=== PATIENT | female | born 1945 | race Caucasian/White ===

== ENCOUNTER 2017-02-21 14:11 | Inpatient (IN) | payer MEDICARE, OTHER ==
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
[2017-02-21 15:19] LABS: Basophils % (A) 1 %; CH 32.3; CHCM 32.5; Eosinophils # (A) 0.2 k/uL (0-0.7); Eosinophils % (A) 3 %; HCT 35.3 % (34.0-46.0); HDW 2.81; HGB 11.2 gm/dL (11.4-16.0); Luc % (Auto) 2; Lymphocytes # (A) 1.3 k/uL (1.0-4.8); Lymphocytes % (A) 22 %; MCH 31.6 pg (25.0-35.0); MCHC 31.6 g/dL (31.0-37.0); MCV 99.9 fL (80.0-100.0); Monocytes # (A) 0.4 k/uL (0-1.0); Monocytes % (A) 7 %; Neutrophils # (A) 4.2 k/uL (1.3-7.7); Neutrophils % (A) 67 %; RBC 3.54 m/uL (3.80-5.40); WBC 6.2 k/uL (3.8-10.6); WBC (Perox) 6.41
[2017-02-21 15:24] LABS: Acetaminophen <10.0 ug/mL; Alcohol <10 mg/dL; Anion Gap 8 mmol/L; Blood Urea Nitrogen 15 mg/dL (7-17); Calcium 9.8 mg/dL (8.4-10.2); Carbon Dioxide 27 mmol/L (22-30); Chloride 106 mmol/L (98-107); Glucose 102 mg/dL (74-99); Magnesium 1.9 mg/dL (1.6-2.3); Non-African American GFR(MDRD) >60 (>60 ml/min/1.73 sqM); Phosphorus 4.3 mg/dL (2.5-4.5); Potassium 3.9 mmol/L (3.5-5.1); Salicylate <1.0 mg/dL; Sodium 141 mmol/L (137-145)
[2017-02-21 16:21] LABS: Appearance,Urine Cloudy (Clear); Bacteria,Urine Rare /hpf; Bilirubin,Urine Negative (Negative); Glucose,Urine (UA) Negative (Negative); Ketones,Urine Negative (Negative); Leukocyte Esterase,Urine Large (Negative); Mucus,Urine Rare /hpf; Nitrite,Urine Negative (Negative); PH, Urine 6.5 (5.0-8.0); Particle Count 8193; Protein,Urine Negative (Negative); RBC,Urine <1 /hpf (0-5); Specific Gravity,Urine 1.006 (1.001-1.035); UA Billing (MACRO vs. MICRO) MICRO; Urobilinogen,Urine <2.0 mg/dL (<2.0); WBC,Urine 131 /hpf (0-5)
[2017-02-21] MEDS ORDERED: LORazepam 2 MG/ML INJ IV STA ×2 (16:38→17:41)
[2017-02-21] MEDS ORDERED: cefTRIAXone IN SWFI 1,000 MG/10 ML SYRINGE IVP ONE (17:00)
[2017-02-21] MEDS ORDERED: LORazepam 2 MG/ML INJ IV PRN (17:41)
[2017-02-21] MEDS ORDERED: SODIUM CHLORIDE 0.9% 1,000 ML IV ONE (17:42)
[2017-02-21] MEDS ORDERED: HALOPERIDOL LACTATE 5 MG/ML 1 ML VIAL IM ONE (18:04)
[2017-02-21] MEDS: HALOPERIDOL LACTATE 5 MG/ML 1 ML VIAL IM PRN ×2 (19:55→23:22)
[2017-02-21] MEDS ORDERED: QUEtiapine 25 MG TAB PO SCH (21:00)
[2017-02-22] MEDS: HALOPERIDOL LACTATE 5 MG/ML 1 ML VIAL IM PRN (06:07)
[2017-02-22] MEDS ORDERED: LORazepam 2 MG/ML INJ IM PRN (06:39)
[2017-02-22 07:37] LABS: Anion Gap 11 mmol/L; Blood Urea Nitrogen 11 mg/dL (7-17); Calcium 9.6 mg/dL (8.4-10.2); Carbon Dioxide 20 mmol/L (22-30); Chloride 110 mmol/L (98-107); Glucose 99 mg/dL (74-99); Non-African American GFR(MDRD) >60 (>60 ml/min/1.73 sqM); Potassium 4.5 mmol/L (3.5-5.1); Sodium 141 mmol/L (137-145)
[2017-02-22 07:47] LABS: Basophils # (A) 0.1 k/uL (0-0.2); Basophils % (A) 2 %; CH 31.5; CHCM 29.8; Eosinophils # (A) 0.1 k/uL (0-0.7); Eosinophils % (A) 4 %; HCT 36.8 % (34.0-46.0); HDW 2.74; HGB 11.4 gm/dL (11.4-16.0); Hypochromasia Marked; Luc # (Auto) 0.09; Luc % (Auto) 2; Lymphocytes # (A) 0.7 k/uL (1.0-4.8); Lymphocytes % (A) 18 %; MCH 32.7 pg (25.0-35.0); MCHC 30.9 g/dL (31.0-37.0); Macrocytosis Slight; Mean Platelet Volume 7.7; Monocytes # (A) 0.4 k/uL (0-1.0); Monocytes % (A) 9 %; Neutrophils # (A) 2.6 k/uL (1.3-7.7); Neutrophils % (A) 66 %; RBC 3.47 m/uL (3.80-5.40); WBC (Perox) 3.91
[2017-02-22] MEDS ORDERED: CEFUROXIME 250 MG TAB PO SCH (09:00)
[2017-02-22] MEDS ORDERED: cefTRIAXone IN SWFI 1,000 MG/10 ML SYRINGE IVP SCH (09:00)
[2017-02-22] MEDS: ENOXAPARIN 40 MG/0.4 ML SYRINGE SQ SCH (09:27)
[2017-02-22] MEDS: ACETAMINOPHEN TAB 325 MG TAB PO PRN ×4 (09:41→23:39)
--- NOTE | 2017-02-22 14:59 | XR ---
EXAMINATION TYPE: XR Hip LT and AP Pelvis DATE OF EXAM: 02/22/2017 COMPARISON: NONE HISTORY: Pain TECHNIQUE: A single AP view of the pelvis is obtained. Two views of the left hip are obtained. FINDINGS: Patient is status post open reduction internal fixation for bilateral hip fractures, left h ip fracture is more recent with intertrochanteric appearance. The left hip shows displacement of the lesser trochanter with comminuted fracture fragments, heterotopic new bone formation present bilatera lly. Alignment is maintained. Bone mineralization is reduced. Probable vascular calcifications are pr esent within the pelvis. Basilar calcifications also noted within the soft tissues of the left lower extremity. [place] are present within the soft tissues of the left thigh. IMPRESSION: Postop changes as described.
--- NOTE | 2017-02-22 15:07 | XR ---
Left ankle HISTORY: Pain 3 views of the left ankle Bone mineralization is reduced. Patient shows post open reduction internal fixation changes were medi al malleolar, distal fibular fracture now healed. Alignment is maintained. Degenerative changes are p resent within the intertarsal joints. No acute fracture or dislocation is evident. There is soft tiss ue swelling present. Difficult to exclude some impingement of the medial malleolar screws at the ankl e joint. IMPRESSION: Osteopenia, postop changes and additional findings above. Correlate to exclude impingemen t.
--- NOTE | 2017-02-22 15:55 | XR ---
Left hand HISTORY: Pain, fall, altered mental status 2 views of the left hand There is a distal metaphyseal left radial fracture which may be chronic with remodeling, distal ulnar fracture is also likely present with pseudoarthrosis, nonunion. There is periosteal new bone formati on is suspected at the distal fifth metacarpal. Bone mineralization is reduced. IMPRESSION: Findings suggest fractures of indeterminate age. Correlate.
[2017-02-22] MEDS ORDERED: OLANZapine ODT 5 MG TAB PO PRN (16:37)
[2017-02-22] MEDS ORDERED: NON-FORMULARY DRUG (Acetaminophen [Tylenol 8 Hour] 650 MG) PO PRN (17:41)
[2017-02-22] MEDS: OLANZapine 2.5 MG TAB PO SCH ×2 (17:59→22:00)
--- NOTE | 2017-02-22 18:16 | XR ---
EXAMINATION TYPE: XR chest 1V portable DATE OF EXAM: 02/22/2017 COMPARISON: NONE HISTORY: Heart failure. Chest pain TECHNIQUE: Single frontal view of the chest is obtained. FINDINGS: There is no heart failure nor confluent pneumonic infiltrate. Costophrenic angles are nicci r. Thoracic aorta is atheromatous. There is no sign of pleural effusion. IMPRESSION: No active cardiopulmonary disease.
--- NOTE | 2017-02-22 18:36 | CT ---
EXAMINATION TYPE: CT brain wo con DATE OF EXAM: 02/22/2017 COMPARISON: NONE HISTORY: Patient poor historian. Patient altered mental status. Fall. CT DLP: 1109 mGycm Automated exposure control for dose reduction was used. FINDINGS: There is cerebral cortical atrophy. There is enlargement of the ventricles. There is no mass effect n or midline shift. There is no sign of intracranial hemorrhage. The calvarium is intact. 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 NO ACUTE INTRACRANIAL ABNORMALITY.
[2017-02-22] MEDS: cefTRIAXone IN SWFI 1,000 MG/10 ML SYRINGE IVP SCH (18:56)
--- NOTE | 2017-02-22 20:48 | HP ---
HISTORY AND PHYSICAL CHIEF COMPLAINT: Change in mental status. HISTORY OF PRESENT ILLNESS: This 71-year-old woman with a past medical history of multiple medical problems, including hypertension, hyperlipidemia, history of DJD, history of heavy alcohol abuse, previously apparent dementia being followed by primary physician in the outpatient setting recently had a fall and had surgery on the left hip and elsewhere. The patient subsequently admitted to [facility] in [place]. In [facility] in [place], the patient was found to be confused, patient had abnormal behavior and the patient taken to [facility] and admitted for evaluation and treatment. UTI, sepsis suspected as well as alcohol-related issues were suspected, also. The patient was complaining of multiple falls as well. The patient also had deformity of the left hand. Multiple x-rays were done and ankle x-ray showed osteopenia, postoperative changes. Otherwise, hip and pelvis x-ray showed postoperative changes and hand x-ray was also done which showed fracture of indeterminate age of the distal ulna. There is no history of any fever, rigors or chills. The patient is confused and I am unable to obtain a coherent history. Most of the history is taken in my discussion with staff as well as review of the chart. PAST MEDICAL HISTORY: Recent fracture surgery, hypertension, COPD, hypothyroidism, vitamin D deficiency, EtOH. MEDICATIONS: Prior to admission include: 1. Librium 25 mg p.o. b.i.d. 2. Norvasc 10 mg p.o. daily. 3. Vitamin B1 100 mg b.i.d. 4. Multivitamins 1 p.o. daily. 5. Synthroid 200 mcg p.o. daily. 6. Ativan 2 mg q.4h p.r.n. 7. Folic acid 1 mg. 8. Iron sulfate 325 mg b.i.d. 9. Lovenox 40 mg subcu daily. 10.Vasotec 5 mg p.o. daily. 11.Colace 100 mg p.o. b.i.d. 12.Vitamin D3 2000 a day. 13.Calcium carbonate 500 mg p.o. b.i.d. 14.Atelectasis 100 mg p.o. daily. 15.Tylenol every 6 hours p.r.n. ALLERGIES: None. FAMILY HISTORY, SOCIAL HISTORY, REVIEW OF SYSTEMS: Could not be taken, as the patient is stuporous. Otherwise as mentioned earlier. PHYSICAL EXAM: Patient is stuporous. Pulse is 68, blood pressure 94/80, respirations 18, temperature 98.8, pulse ox 98% on room air. HEENT: Conjunctivae normal. Oral mucosa moist. NECK: No jugular venous distention. No carotid bruits. No lymph node enlargement. CARDIOVASCULAR: S1, S2 muffled. No S3, S4. RESPIRATORY: Breath sounds diminished in the bases. A few scattered rhonchi. No crackles. ABDOMEN: Soft, nontender. LEGS: No edema. NERVOUS SYSTEM: Diffusely weak. SKIN: No ulcer, rash, bleeding. LYMPHATIC: No lymphadenopathy in neck, axillae or groins. JOINTS: Multiple deformities present. LABS: WBC 4, hemoglobin is 11.4. UA noted. ASSESSMENT: 1. Acute urinary tract infection with possible sepsis. 2. Left hand fracture. 3. Fall and multiple fractures with left hip fracture and surgery recently. 4. History possible dementia. 5. History of ethanol. 6. History of chronic obstructive pulmonary disease. 7. Hypertension. 8. History of vitamin D deficiency. 9. History of degenerative joint disease. RECOMMENDATION AND DISCUSSION: In this 71-year-old woman who presented with multiple complex medical issues, will monitor the patient closely. Continue the current management and continue symptomatic treatment. At this time, I recommend continuing with the current medications. Otherwise, Ativan p.r.n., orthopedic consultation. I would also recommend supplement vitamins, symptomatic treatment, psychiatric consultation and Neurology also will be consulted. Guarded prognosis because of multiple complex medical issues. Further recommendations to follow. MMODL / IJN: [id number] / LINDA
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
[2017-02-22] MEDS: CALCIUM CARBONATE 500 MG CHEWABLE PO SCH (21:59)
[2017-02-22] MEDS: chlordiazePOXIDE 25 MG CAP PO SCH (22:00)
[2017-02-22] MEDS: FERROUS SULFATE 325 MG TAB PO SCH (22:00)
[2017-02-22] MEDS: DOCUSATE 100 MG CAP PO SCH (22:00)
--- NOTE | 2017-02-22 22:44 | P.CNNES ---
History of Present Illness Consult date: 02/22/17 Reason for Consult: Patient admitted for altered mental status and urosepsis. History of Present Illness: this patient is a 71-year-old right-handed white female who was transferred to [facility] for further evaluation following a fall. Patient has been residing at [facility] for the past several years. She was recently sent there after she had undergone left hip surgery at [facility]. She made some recovery following the surgery. Apparently while at [facility] [place] she had a fall. Patient is unable to give details of that fall. She was subsequent admitted to the medical floor. Patient is resting comfortably. We have recommended a routine EEG to be done for further evaluation. Patient is a very poor historian. Apparently she does have history of underlying dementia. On admission to the hospital here her laboratory test results revealed her to have evidence of a urinary tract infection. She has been started on antibiotics pending her culture reports. Patient has no previous history of seizures. As noted she does have evidence of underlying dementia. She is now been admitted and neurology has been consulted for further evaluation and recommendations. Review of Systems Constitutional: Denies chills, Denies fever Eyes: denies blurred vision, denies pain Ears, nose, mouth and throat: Denies headache, Denies sore throat Cardiovascular: Denies chest pain, Denies shortness of breath Respiratory: Denies cough Gastrointestinal: Denies abdominal pain, Denies diarrhea, Denies nausea, Denies vomiting Genitourinary: Denies dysuria, Denies hematuria Musculoskeletal: Denies myalgias Integumentary: Denies pruritus, Denies rash Neurological: Reports change in mentation, Reports change in speech, Reports confusion, Reports memory loss, Reports paresthesias, Reports tingling, Denies numbness, Denies weakness Psychiatric: Denies anxiety, Denies depression Endocrine: Denies fatigue, Denies weight change Past Medical History Past Medical History: COPD, Hypertension, Thyroid Disorder Additional Past Medical History / Comment(s): vitamin D deficiency, falls History of Any Multi-Drug Resistant Organisms: None Reported Past Surgical History: Appendectomy, Joint Replacement, Orthopedic Surgery Past Anesthesia/Blood Transfusion Reactions: Unable to Obtain Past Psychological History: No Psychological Hx Reported Smoking Status: Former smoker Past Alcohol Use History: None Reported Past Drug Use History: None Reported Medications and Allergies Home Medications Medication Instructions Recorded Confirmed Type Acetaminophen [Tylenol 8 Hour] 650 mg PO Q4H PRN 02/21/17 02/21/17 History Atenolol 100 mg PO DAILY 02/21/17 02/21/17 History Calcium Carbonate 500 mg PO BID 02/21/17 02/21/17 History Cholecalciferol [Vitamin D3] 2,000 unit PO DAILY 02/21/17 02/21/17 History Docusate [Colace] 100 mg PO BID 02/21/17 02/21/17 History Enalapril [Vasotec] 5 mg PO DAILY 02/21/17 02/21/17 History Enoxaparin [Lovenox] 40 mg SQ DAILY 02/21/17 02/21/17 History Ferrous Sulfate [Feosol] 325 mg PO BID 02/21/17 02/21/17 History Folic Acid 1 mg PO DAILY 02/21/17 02/21/17 History LORazepam [Ativan] 2 mg PO Q4H PRN 02/21/17 02/21/17 History Levothyroxine Sodium [Synthroid] 200 mcg PO DAILY 02/21/17 02/21/17 History Multivitamins, Thera [Multivitamin 1 tab PO DAILY 02/21/17 02/21/17 History (formulary)] Thiamine [Vitamin B-1] 100 mg PO DAILY 02/21/17 02/21/17 History amLODIPine [Norvasc] 10 mg PO DAILY 02/21/17 02/21/17 History chlordiazePOXIDE HCL 25 mg PO BID 02/21/17 02/21/17 History Allergies Allergy/AdvReac Type Severity Reaction Status Date / Time No Known Allergies Allergy Verified 02/21/17 20:41 Physical Examination - Vital Signs Vital Signs: Vital Signs Temp Pulse Resp BP Pulse Ox 02/22/17 17:00 97.6 F 82 18 154/67 96 02/22/17 11:43 98.8 F 68 18 94/83 98 02/22/17 03:33 18 02/21/17 23:19 18 Intake and Output 02/22/17 02/22/17 02/22/17 06:59 14:59 22:59 Intake Total 240 240 Balance 240 240 Intake: Oral 240 240 Other: Voiding Method Diaper Diaper Diaper Incontinent Incontinent # Voids 2 1 1 - Constitutional General appearance: average body habitus, cooperative - EENT EENT: PERRL, mucous membranes moist - Respiratory Respiratory: lungs clear, normal breath sounds - Cardiovascular Cardiovascular: regular rate, normal S1, normal S2 Extremities: no peripheral edema bilaterally - Gastrointestinal Gastrointestinal: normoactive bowel sounds - Integumentary Integumentary: normal - Neurologic Cranial nerve examination: PERRL, EOMI, VFF, V1/V2/V3 grossly intact, face symmetric, tongue midline, intact gag reflex, intact corneal reflex, normal palatal elevation Speech examination: intact Sensorimotor examination: intact Motor examination - right side: 4/5: biceps, triceps, wrist flexion, wrist extension, sonar watchstander, hip flexors, knee extensors, dorsiflexion, toe extension (EHL) , plantarflexion Motor examination - left side: 4/5: biceps, triceps, wrist flexion, wrist extension, sonar watchstander, hip flexors, knee extensors, dorsiflexion, toe extension (EHL) , plantarflexion Detailed sensory examination: intact Reflex and gait examination: intact Reflexes: 1+: ankle, bicep, knee, tricep - Musculoskeletal Musculoskeletal: no pain - Psychiatric Psychiatric: mood/affect appropriate, cooperative Results - Laboratory Findings CBC and BMP: 02/22/17 07:00 02/22/17 07:00 Abnormal Lab Findings: Abnormal Labs 02/21/17 02/21/17 02/21/17 15:01 15:01 15:59 RBC 3.54 L Hgb 11.2 L MCV MCHC Lymphocytes # Chloride Carbon Dioxide Glucose 102 H Urine Appearance Cloudy H Ur Leukocyte Esterase Large H Urine WBC 131 H Urine WBC Clumps Few H Urine Bacteria Rare H Urine Mucus Rare H U Benzodiazepines Scrn Detected H 02/22/17 02/22/17 07:00 07:00 RBC 3.47 L Hgb MCV 106.0 H D MCHC 30.9 L Lymphocytes # 0.7 L Chloride 110 H Carbon Dioxide 20 L Glucose Urine Appearance Ur Leukocyte Esterase Urine WBC Urine WBC Clumps Urine Bacteria Urine Mucus U Benzodiazepines Scrn Assessment and Plan (1) Metabolic encephalopathy Current Visit: Yes Status: Acute SNOMED Code(s): 71142418 (2) Dementia Current Visit: Yes Status: Acute SNOMED Code(s): 33221669 (3) Adjustment reaction Current Visit: Yes Status: Acute SNOMED Code(s): 12131930 (4) UTI (urinary tract infection) Current Visit: Yes Status: Acute SNOMED Code(s): 48517064 Plan: this patient is a 71-year-old female who was brought into the emergency room at [facility]. Patient was recently sent for subacute rehab after she had left hip surgery at [facility]. She is making progress but then showed some regression. She was essentially admitted to Hospital. Her laboratory test results and urine analysis reveals her to have a urinary tract infection. She does have a history of underlying dementia as well and it is hard to assess at this time the degree of dementia that she may suffer from. She does answer some questions appropriately. She does seem to be slightly that are checked on exam today. We have recommended to continue treatment of underlying urosepsis. We will obtain routine EEG for further evaluation. Patient is being considered for return back to her previous ECF at the time of discharge. Her overall prognosis at this time remains guarded. We will continue close neurological follow-up of this patient during this admission. Time with Patient: Greater than 30
[2017-02-23] MEDS: ACETAMINOPHEN TAB 325 MG TAB PO PRN (04:21)
[2017-02-23] MEDS: LEVOTHYROXINE 100 MCG TAB PO SCH (06:21)
[2017-02-23 08:07] LABS: Basophils # (A) 0.1 k/uL (0-0.2); Basophils % (A) 1 %; CH 31.2; CHCM 30.7; Eosinophils # (A) 0.2 k/uL (0-0.7); Eosinophils % (A) 5 %; HDW 2.58; HGB 10.9 gm/dL (11.4-16.0); Hypochromasia Moderate; Luc # (Auto) 0.09; Luc % (Auto) 2; Lymphocytes # (A) 0.7 k/uL (1.0-4.8); Lymphocytes % (A) 16 %; MCH 31.8 pg (25.0-35.0); MCHC 31.2 g/dL (31.0-37.0); Macrocytosis Slight; Mean Platelet Volume 8.3; Monocytes # (A) 0.4 k/uL (0-1.0); Monocytes % (A) 8 %; Neutrophils % (A) 67 %; RBC 3.43 m/uL (3.80-5.40); RDW 13.2 % (11.5-15.5); WBC 4.4 k/uL (3.8-10.6); WBC (Perox) 4.69
[2017-02-23] MEDS: FERROUS SULFATE 325 MG TAB PO SCH ×2 (08:09→21:05)
[2017-02-23] MEDS: ATENOLOL 50 MG TAB PO SCH (08:09)
[2017-02-23] MEDS: DOCUSATE 100 MG CAP PO SCH ×2 (08:09→21:05)
[2017-02-23] MEDS: OLANZapine 2.5 MG TAB PO SCH ×3 (08:09→21:06)
[2017-02-23] MEDS: cefTRIAXone IN SWFI 1,000 MG/10 ML SYRINGE IVP SCH (08:10)
[2017-02-23] MEDS: chlordiazePOXIDE 25 MG CAP PO SCH ×2 (08:10→21:05)
[2017-02-23] MEDS: CALCIUM CARBONATE 500 MG CHEWABLE PO SCH ×2 (08:10→21:05)
[2017-02-23] MEDS: ENOXAPARIN 40 MG/0.4 ML SYRINGE SQ SCH ×2 (08:10→08:14)
[2017-02-23 08:22] LABS: Anion Gap 7 mmol/L; Blood Urea Nitrogen 12 mg/dL (7-17); Calcium 9.8 mg/dL (8.4-10.2); Carbon Dioxide 25 mmol/L (22-30); Chloride 110 mmol/L (98-107); Glucose 96 mg/dL (74-99); Non-African American GFR(MDRD) >60 (>60 ml/min/1.73 sqM); Potassium 4.1 mmol/L (3.5-5.1); Sodium 142 mmol/L (137-145)
--- NOTE | 2017-02-23 11:31 | P.CNOR ---
History of Present Illness - [facility] Consult date: 02/23/17 Consult reason: other (follow-up left hip surgery) History of present illness: This is a 71 year old female who presents after falling. She had closed reduction and insertion long IT nail on her left hip 1 week ago and has a history of left distal radial fracture that has healed. She does not recall when the injury occurred to her left wrist, but she states it was "a very long time ago." The patient does not complain of any pain. Past Medical History Past Medical History: COPD, Hypertension, Thyroid Disorder Additional Past Medical History / Comment(s): vitamin D deficiency, falls History of Any Multi-Drug Resistant Organisms: None Reported Past Surgical History: Appendectomy, Joint Replacement, Orthopedic Surgery Past Anesthesia/Blood Transfusion Reactions: Unable to Obtain Past Psychological History: No Psychological Hx Reported Smoking Status: Former smoker Past Alcohol Use History: None Reported Past Drug Use History: None Reported Medications and Allergies Home Medications Medication Instructions Recorded Confirmed Type Acetaminophen [Tylenol 8 Hour] 650 mg PO Q4H PRN 02/21/17 02/21/17 History Atenolol 100 mg PO DAILY 02/21/17 02/21/17 History Calcium Carbonate 500 mg PO BID 02/21/17 02/21/17 History Cholecalciferol [Vitamin D3] 2,000 unit PO DAILY 02/21/17 02/21/17 History Docusate [Colace] 100 mg PO BID 02/21/17 02/21/17 History Enalapril [Vasotec] 5 mg PO DAILY 02/21/17 02/21/17 History Enoxaparin [Lovenox] 40 mg SQ DAILY 02/21/17 02/21/17 History Ferrous Sulfate [Feosol] 325 mg PO BID 02/21/17 02/21/17 History Folic Acid 1 mg PO DAILY 02/21/17 02/21/17 History LORazepam [Ativan] 2 mg PO Q4H PRN 02/21/17 02/21/17 History Levothyroxine Sodium [Synthroid] 200 mcg PO DAILY 02/21/17 02/21/17 History Multivitamins, Thera [Multivitamin 1 tab PO DAILY 02/21/17 02/21/17 History (formulary)] Thiamine [Vitamin B-1] 100 mg PO DAILY 02/21/17 02/21/17 History amLODIPine [Norvasc] 10 mg PO DAILY 02/21/17 02/21/17 History chlordiazePOXIDE HCL 25 mg PO BID 02/21/17 02/21/17 History Allergies Allergy/AdvReac Type Severity Reaction Status Date / Time No Known Allergies Allergy Verified 02/21/17 20:41 Physical Examination This is a pleasant, white female in no acute distress. She is alert and oriented to person, place, and time. She demonstrates full ROM of bilateral hips , ankles, knees, and wrists without pain. There is a deformity noted of the left wrist. Her surgical site on the left lateral thigh appears clean, dry, intact and healing well. Minimal ecchymosis is noted on the dorsal hands. No erythema or edema noted on bilateral lower extremities. Vascular and neurologic function appear intact. Results X-rays of her left hip and pelvis reveal a long IT nail in the left femur with displacement of the lesser trochanter. There is also an IT nail in the right hip seen on pelvis x-ray. Hardware is in good position and alignment. X-ray of the wrist shows old distal radius and ulnar fractures with significant shortening of the distal radius. There moderate degenerative changes noted to the wrist. - Labs Labs: Abnormal Lab Results - Last 24 Hours (Table) 02/23/17 02/23/17 Range/Units 07:40 07:40 RBC 3.43 L (3.80-5.40) m/uL Hgb 10.9 L (11.4-16.0) gm/dL MCV 102.0 H (80.0-100.0) fL Lymphocytes # 0.7 L (1.0-4.8) k/uL Chloride 110 H (98-107) mmol/L Microbiology - Last 24 Hours (Table) 02/21/17 15:59 Urine Culture - Preliminary Urine,Catheterized H & H 02/21/17 02/22/17 02/23/17 Range/Units 15:01 07:00 07:40 Hgb 11.2 L 11.4 10.9 L (11.4-16.0) gm/dL Hct 35.3 36.8 35.0 (34.0-46.0) % Result Diagrams: 02/23/17 07:40 02/23/17 07:40 Assessment and Plan (1) Fracture of left wrist with malunion Current Visit: Yes Status: Acute Code(s): S62.102P - FX UNSP CARPAL BONE, LEFT WRIST, SUBS FOR FX W MALUNION SNOMED Code(s): 005528576 (2) Altered mental state Current Visit: Yes Status: Acute Code(s): R41.82 - ALTERED MENTAL STATUS, UNSPECIFIED SNOMED Code(s): 860483193 (3) Status post closed fracture of one hip Current Visit: Yes Status: Acute Code(s): Z87.81 - PERSONAL HISTORY OF ( HEALED) TRAUMATIC FRACTURE SNOMED Code(s): 651961412 Plan: The clinical and x-ray findings are discussed with the patient. She is currently having no wrist or hip pain. Her left wrist fracture is old on x-ray and clinically. Her hip incisions look good with no sign of infection. X-rays look fine. She may continue physical therapy as previously directed. She is to follow up with her orthopedic surgeon when she is discharged.
[2017-02-23] MEDS: CHOLECALCIFEROL 1,000 UNIT TAB PO SCH (11:33)
[2017-02-23] MEDS: THIAMINE 100 MG TAB PO SCH (11:33)
[2017-02-23] MEDS: MULTIVITAMINS, THERA 1 EACH TAB PO SCH (11:34)
[2017-02-23] MEDS: FOLIC ACID 1 MG TAB PO SCH (11:34)
--- NOTE | 2017-02-23 19:56 | PN ---
PROGRESS NOTE DATE OF SERVICE: 02/23/2007 This 71-year-old woman who was admitted with acute UTI, sepsis also had emesis. Patient also had fractured also. Patient had a malunited fracture on the left forearm. Multiple consultants are following the patient including neurology. CT scan of the brain was done which showed evidence of significant cerebral atrophy, normal-pressure hydrocephalus. There is no history of fever, rigors. No history of headache, loss of conscious or seizures. PAST MEDICAL HISTORY: Reviewed. REVIEW OF SYMPTOMS: Could not be taken. CURRENT MEDICATIONS ARE: 1. Tylenol 650 q.4h p.r.n. 2. Tenormin 100 mg p.o. daily at home. 3. Rocephin 1 g daily. 4. Librium. 5. Colace. 6. Lovenox. 7. Iron sulfate. 8. Folic acid. 9. Haldol. 10.Synthroid. 11.Zyprexa. 12.Vitamin B1. PHYSICAL EXAM: Patient is alert, oriented times three. Pulse 74, blood pressure 186/75, respirations 20, temperature 97.9, pulse ox 98% on room air. HEENT: Conjunctivae normal. Oral mucosa moist. Neck is no jugular venous distention. No carotid bruit. No lymph node enlargement. Cardiovascular: S1, S2 muffled. No S3, no S4. Respiratory: Breath sounds diminished in the bases. A few rhonchi. No crackles. ABDOMEN: Soft, nontender. No mass palpable. Legs: No edema. No swelling. NERVOUS SYSTEM: Higher functions as mentioned earlier. Moves all four extremities. Mild diffuse weakness. Lymphatics: No lymph nodes palpable in the neck and axilla. Skin no ulcer, rash or bleeding. LABS: WBC 4.2, hemoglobin 10.9. UA noted. ASSESSMENT: 1. Acute urinary tract infection with possible sepsis present on admission. 2. Change in mental status, metabolic encephalopathy secondary to sepsis. 3. Left hand fracture with malunion. 4. History of fall and multiple fractures with the left hip fracture and surgery recently. 5. Gait dysfunction. 6. History of possible dementia. 7. Normal-pressure hydrocephalus. 8. History EtOH. 9. History of chronic obstructive pulmonary disease. 10.Hypertension. 11.History of vitamin D deficiency. 12.History of degenerative joint disease. RECOMMENDATIONS AND DISCUSSION: Recommend to continue current medications, symptomatic treatment and continue to monitor. PT/OT evaluation. Possible ECF rehab. Continue antibiotics. Orthopedic evaluation and impression appreciated. Cultures are pending at this time. Further recommendations to follow. The patient also on Rocephin 1 g IV daily, multivitamin supplementations needs to be continued and prognosis will follow. Thank you for letting us participate in the care of this patient. MMMUSTAPHAL / CLAUDIAN: [id number] /
[2017-02-23 22:31] VITALS: RESP 18
[2017-02-24] MEDS: LEVOTHYROXINE 100 MCG TAB PO SCH (06:20)
[2017-02-24] MEDS: ENOXAPARIN 40 MG/0.4 ML SYRINGE SQ SCH (07:51)
[2017-02-24] MEDS: OLANZapine 2.5 MG TAB PO SCH (07:52)
[2017-02-24] MEDS: DOCUSATE 100 MG CAP PO SCH ×2 (07:52→20:53)
[2017-02-24] MEDS: CALCIUM CARBONATE 500 MG CHEWABLE PO SCH ×2 (07:52→20:53)
[2017-02-24] MEDS: ATENOLOL 50 MG TAB PO SCH (07:52)
[2017-02-24] MEDS: FERROUS SULFATE 325 MG TAB PO SCH ×2 (07:53→20:53)
[2017-02-24] MEDS: chlordiazePOXIDE 25 MG CAP PO SCH ×2 (07:58→20:57)
[2017-02-24 08:14] LABS: Basophils % (A) 1 %; CHCM 31.4; Eosinophils # (A) 0.2 k/uL (0-0.7); Eosinophils % (A) 4 %; HCT 38.5 % (34.0-46.0); HDW 2.71; HGB 11.7 gm/dL (11.4-16.0); Hypochromasia Slight; Luc # (Auto) 0.15; Luc % (Auto) 3; Lymphocytes # (A) 0.6 k/uL (1.0-4.8); Lymphocytes % (A) 12 %; MCHC 30.3 g/dL (31.0-37.0); MCV 102.2 fL (80.0-100.0); Mean Platelet Volume 7.7; Monocytes # (A) 0.3 k/uL (0-1.0); Monocytes % (A) 7 %; Neutrophils # (A) 3.8 k/uL (1.3-7.7); Neutrophils % (A) 74 %; RBC 3.76 m/uL (3.80-5.40); RDW 12.1 % (11.5-15.5); WBC 5.1 k/uL (3.8-10.6); WBC (Perox) 5.36
[2017-02-24 08:18] LABS: Anion Gap 8 mmol/L; Blood Urea Nitrogen 13 mg/dL (7-17); Carbon Dioxide 27 mmol/L (22-30); Chloride 105 mmol/L (98-107); Glucose 110 mg/dL (74-99); Non-African American GFR(MDRD) >60 (>60 ml/min/1.73 sqM); Potassium 4.4 mmol/L (3.5-5.1); Sodium 140 mmol/L (137-145)
[2017-02-24] MEDS: cefTRIAXone IN SWFI 1,000 MG/10 ML SYRINGE IVP SCH (08:40)
[2017-02-24] MEDS: THIAMINE 100 MG TAB PO SCH (10:54)
[2017-02-24] MEDS: FOLIC ACID 1 MG TAB PO SCH (10:54)
[2017-02-24] MEDS: MULTIVITAMINS, THERA 1 EACH TAB PO SCH (10:54)
[2017-02-24] MEDS: CHOLECALCIFEROL 1,000 UNIT TAB PO SCH (10:54)
[2017-02-24] MEDS ORDERED: methylPREDNISolone SOD SUCCI 125 MG/2 ML VIAL IV PRN (14:15)
[2017-02-24] MEDS ORDERED: diphenhydrAMINE 50 MG/ML 1 ML VIAL IVP PRN (14:16)
--- NOTE | 2017-02-24 15:57 | P.PN ---
Subjective Progress Note Date: 02/24/17 Patient is a 71 year old female being evaluated for altered mental status and encephalopathy secondary to sepsis and dementia. Patient has a history of a closed reduction and insertion of the long IT nail into her left hip about 1 week ago. She has a history of a left distal radial fracture that has healed. Patient does not have memory as to what caused her injury. As noted she does have a history of underlying dementia. X-ray of her left wrist indicates distal radius and ulnar fractures with moderate degree of degenerative changes. Her left hip x-ray reveals hardware to be in good position and alignment. Orthopedic surgery is following the patient closely. She is currently not experiencing any wrist or hip pain and her x-rays were reviewed by orthopedic surgery. She is to continue with physical therapy as she tolerates. Patient continues treatment of underlying urinary tract infection and is currently on antibiotic therapy. She continues to demonstrate evidence of a diffuse encephalopathy. We have requested routine EEG to be completed which is still pending at this time. Overall the patient seems to be slightly improved in terms of her mental status. The patient's computed tomography scan of the brain performed on 02/22/2017 was reviewed today. There is evidence of moderate degree of ventriculomegaly. There is no evidence of acute obstructive hydrocephalus. Due to the patient's known history of underlying dementia the degree of cortical atrophy and ventriculomegaly seems to be appropriate for her age. We will continue close neurological follow-up of this patient during this admission. She will likely require subacute rehab placement into [facility] at the time of discharge. Would continue aggressive treatment of her underlying sepsis. Hopefully this will also help improve her overall mental status over time. We will continue close neurological follow-up of this patient during this admission. Objective - Vital Signs Vital signs: Vital Signs Temp 96.7 F L 02/24/17 06:07 Pulse 79 02/24/17 06:07 Resp 18 02/24/17 06:07 BP 154/75 02/24/17 06:07 Pulse Ox 95 02/24/17 06:07 Intake & Output 02/23/17 02/24/17 02/24/17 18:59 06:59 18:59 Intake Total 1500 Balance 1500 Intake: Oral 1500 Other: Voiding Method Diaper Diaper Incontinent Incontinent # Voids 3 3 - Exam Physical Examination: PHYSICAL EXAMINATION: Patient is resting comfortably in bed. VITAL SIGNS: Blood pressure is [154/75]. Heart rate is [79]. Respiration is [18] . Temperature is [96.7]. HEENT: Head is atraumatic, neck is supple, there were no carotid bruits. CHEST: Lungs are clear to auscultation and percussion. CARDIAC: S1, S2 normal rate and rhythm. There is no murmur. ABDOMEN: Soft and nontender. Bowel sounds are present. EXTREMITIES: There is no pedal edema. Peripheral pulses are present. Neurological examination: Patient's neurological examination is unchanged from yesterday. Patient is awake alert and oriented 2. She follows only simple commands. - Labs CBC & Chem 7: 02/24/17 07:29 02/24/17 07:29 Labs: Abnormal Lab Results - Last 24 Hours (Table) 02/24/17 02/24/17 Range/Units 07:29 07:29 RBC 3.76 L (3.80-5.40) m/uL MCV 102.2 H (80.0-100.0) fL MCHC 30.3 L (31.0-37.0) g/dL Lymphocytes # 0.6 L (1.0-4.8) k/uL Glucose 110 H (74-99) mg/dL Microbiology - Last 24 Hours (Table) 02/22/17 18:44 Blood Culture - Preliminary Blood No Growth after 24 hours 02/21/17 15:59 Urine Culture - Preliminary Urine,Catheterized Coagulase Negative Staph Assessment and Plan (1) Metabolic encephalopathy Current Visit: Yes Status: Acute SNOMED Code(s): 47275434 (2) Dementia Current Visit: Yes Status: Acute SNOMED Code(s): 69013430 (3) Adjustment reaction Current Visit: Yes Status: Acute SNOMED Code(s): 16063901 (4) UTI (urinary tract infection) Current Visit: Yes Status: Acute SNOMED Code(s): 91528246 Plan: this patient is a 71-year-old female who was brought into the emergency room at [facility]. Patient was recently sent for subacute rehab after she had left hip surgery at [facility]. She is making progress but then showed some regression. She was essentially admitted to Hospital. Her laboratory test results and urine analysis reveals her to have a urinary tract infection. She does have a history of underlying dementia as well and it is hard to assess at this time the degree of dementia that she may suffer from. She does answer some questions appropriately. She does seem to be slightly that are checked on exam today. We have recommended to continue treatment of underlying urosepsis. We will obtain routine EEG for further evaluation. We are still awaiting her EEG to be completed. She continues to demonstrate evidence of a diffuse encephalopathy secondary to recent sepsis. Patient is being considered for return back to her previous ECF at the time of discharge. Her overall prognosis at this time remains guarded. We will continue close neurological follow-up of this patient during this admission.
[2017-02-24] MEDS: diphenhydrAMINE 50 MG/ML 1 ML VIAL IVP STA ×2 (15:59)
--- NOTE | 2017-02-24 17:23 | PN ---
PROGRESS NOTE DATE OF SERVICE: 02/24/2017 This 71-year-old woman who was admitted with acute UTI and sepsis is being closely monitored at this time. The patient also had multiple history of multiple falls and the patient also had some slurring of speech also at this time. PAST MEDICAL HISTORY: Reviewed. REVIEW OF SYSTEMS: Could not be taken because of the patient's change in mental status and speech. CURRENT MEDICATIONS ARE: 1. Tylenol 650 q.4h p.r.n. 2. Tenormin 100 mg p.o. daily. 3. Calcium carbonate b.i.d. 4. Ceftin 500 mg b.i.d. 5. Vitamin D3 2000 daily. 7. Colace. 8. Lovenox 40 mg subcu daily. 9. Iron sulfate. 10.Folic acid. 11.Haldol. 12.Synthroid. 13.Solu-Medrol. 14.Multivitamins. 15.Thiamin. 16p.r.n. PHYSICAL EXAMINATION: Alert and oriented x1. Pulse 68, blood pressure 149/64, respiration 18, temperature 98.4, pulse ox 100% on room air. HEENT: Conjunctivae normal. NECK: No jugular venous distention. CARDIOVASCULAR: S1, S2 RESPIRATORY: Breath sounds diminished in the bases. A few scattered rhonchi and crackles. ABDOMEN: Soft, nontender. No mass palpable. LEGS: No edema, no swelling. NERVOUS SYSTEM: Mild diffuse weakness, no focal deficits. LABS: WBC 5.2, hemoglobin 11.7, other labs are noted. UA noted. Cultures are showing Staph epidermidis, possibly contaminant. ASSESSMENT: 1. Acute urinary tract infection with possible sepsis present on admission. 2. Change in mental status, metabolic encephalopathy secondary to sepsis. 3. Left hand fracture with malunion of undetermined duration. 4. History of fall and multiple fractures with the left hip and as well as surgery done. 5. Gait dysfunction. 6. History of possible dementia. 7. Normal-pressure hydrocephalus. 8. History EtOH. 9. Chronic obstructive pulmonary disease. 10.Hypertension. 11.History of vitamin D deficiency. 12.History degenerative joint disease. RECOMMENDATIONS AND DISCUSSION: I recommend to continue the current medications, symptomatic treatment. Otherwise at this time, I would recommend to continue with the current medications. PT, OT evaluation. Possible ECF rehab and vitamin D. Overall prognosis is guarded because of multiple complex medical issues. Further recommendations to follow as mentioned earlier. Culture showed Staph epidermidis. MMODL / IJN: [id number] / LINDA
--- NOTE | 2017-02-24 20:51 | CONS ---
CONSULTATION DATE OF SERVICE: 02/24/2017. PURPOSE FOR CONSULTATION: Evaluate for altered mental status. INTERVAL HISTORY: I saw the patient on 02/22/2017. My assessment was that the patient was in acute alcohol withdrawal at the 2 week jeannie beyond the time frame for a risk of developing delirium tremens. She had been on Ativan p.r.n., which I discontinued. I started the patient on Zyprexa 2.5 mg 3 times a day with the aim to reduce physiologic stress response as it relates to early alcohol withdrawal issues. Today the nurse indicated that the patient was having trouble with garbled speech. She appeared to have a thick tongue where she could barely get the words out of her mouth. When I saw the patient, she was having difficulty, she could barely enunciate words. It was noteworthy that she did not show any other muscle effects. She did not have cogwheeling rigidity, stiffness, tremor or other abnormal movements. Her mood was fairly stable. She was able to smile a little. She was able to say some words that were understandable. Though most of what she said when she tried to talk was garbled. She seemed to pay good attention to the interview. Her daughter was with her and confirmed that she did not appear to have any general change in cognition or awareness. There was no indicators that she might be confused or disoriented. She seemed to be fairly calm. ASSESSMENT: I initiated Benadryl IV for an assumed diagnosis of acute dystonia. It is noted that the nurse had given the patient 25 mg of Benadryl without any change in status. I ordered 100 mg of Benadryl IV push. The nurses gave me an update and noted that in the midst of past limits of administering the Benadryl, she got about shelter through the injection and noted that the patient had a fairly complete clearing of the dysarthria and abnormal tongue movements. As such, she stopped the Benadryl before the entire 100 mg was administered. The rapid change and return to normal of the patient's mouth movements is a confirmative of acute dystonia related to Zyprexa. It is noteworthy that Zyprexa has a very low risk for that causing dystonia. However, the patient's long-term use of alcohol likely puts her at a greater risk in this regard. At this point, I would continue her off Zyprexa altogether. In addition, I will discontinue the apparent Haldol that is ordered although would have a significantly higher risk of exacerbating dystonia and other extrapyramidal side effects. I will continue to follow. MMMUSTAPHAL / IJN: [id number] /
[2017-02-24] MEDS: CEFUROXIME 250 MG TAB PO SCH (20:53)
[2017-02-24] MEDS: diphenhydrAMINE 50 MG/ML 1 ML VIAL IVP PRN (23:44)
[2017-02-25 01:21] VITALS: PULSE 78
[2017-02-25] MEDS: LEVOTHYROXINE 100 MCG TAB PO SCH (06:44)
[2017-02-25 07:28] VITALS: BP 150/81; TEMP 97.5
[2017-02-25] MEDS: ENOXAPARIN 40 MG/0.4 ML SYRINGE SQ SCH (08:05)
[2017-02-25] MEDS: ATENOLOL 50 MG TAB PO SCH (08:05)
[2017-02-25] MEDS: chlordiazePOXIDE 25 MG CAP PO SCH (08:06)
[2017-02-25] MEDS: CALCIUM CARBONATE 500 MG CHEWABLE PO SCH (08:06)
[2017-02-25] MEDS: FERROUS SULFATE 325 MG TAB PO SCH (08:06)
[2017-02-25] MEDS: CEFUROXIME 250 MG TAB PO SCH (08:06)
[2017-02-25] MEDS: DOCUSATE 100 MG CAP PO SCH (08:06)
[2017-02-25 08:07] LABS: Basophils % (A) 0 %; CH 32.2; CHCM 32.2; Eosinophils # (A) 0.1 k/uL (0-0.7); Eosinophils % (A) 1 %; HCT 45.1 % (34.0-46.0); HDW 2.74; Luc # (Auto) 0.05; Luc % (Auto) 1; Lymphocytes # (A) 0.9 k/uL (1.0-4.8); Lymphocytes % (A) 17 %; MCH 32.7 pg (25.0-35.0); MCHC 32.6 g/dL (31.0-37.0); MCV 100.3 fL (80.0-100.0); Mean Platelet Volume 8.5; Monocytes # (A) 0.3 k/uL (0-1.0); Monocytes % (A) 5 %; Neutrophils # (A) 4.4 k/uL (1.3-7.7); Neutrophils % (A) 77 %; WBC 5.7 k/uL (3.8-10.6); WBC (Perox) 5.67
[2017-02-25 08:17] LABS: HGB 14.7 gm/dL (11.4-16.0)
[2017-02-25 09:37] LABS: Anion Gap 9 mmol/L; Blood Urea Nitrogen 17 mg/dL (7-17); Calcium 10.4 mg/dL (8.4-10.2); Carbon Dioxide 25 mmol/L (22-30); Chloride 108 mmol/L (98-107); Glucose 156 mg/dL (74-99); Non-African American GFR(MDRD) >60 (>60 ml/min/1.73 sqM); Potassium 4.3 mmol/L (3.5-5.1); Sodium 142 mmol/L (137-145)
[2017-02-25] MEDS: diphenhydrAMINE 50 MG/ML 1 ML VIAL IVP PRN (12:16)
--- NOTE | 2017-02-25 12:56 | P.DS ---
Providers Date of admission: 02/22/17 12:19 Attending physician: Syl Denis Consults: 02/21/17 16:56 Consult Physician Routine Consulting Provider: Judith Keller Consult Reason/Comments: agitation Do you want consulting provider notified?: Yes 02/22/17 14:36 Consult Physician Routine Consulting Provider: David Patricia Consult Reason/Comments: fall Do you want consulting provider notified?: Yes 02/22/17 14:37 Consult Physician Routine Consulting Provider: López Villanueva Consult Reason/Comments: altered mental status Do you want consulting provider notified?: Yes Primary care physician: [facility] Course: This 71-year-old woman with a past medical history of multiple medical problems was admitted with the UTI with sepsis. Patient also is a mental status. Patient was treated symptomatically with antibiotic patient improved significantly. Patient also had a extrapyramidal reaction to Zyprexa during the hospitalization. Overall patient is back to baseline. Patient be discharged in a stable condition with guarded prognosis. Total time taken is 35 minutes. On exam vitals are stable. Cardio S1 and S2 normal. Respirator system few scattered rhonchi. Abdomen soft nontender. Nervous system no focal deficit. Final diagnosis 1. Acute UTI with possible sepsis present on admission. 2. Change in mental status metabolic encephalopathy secondary to sepsis. 3. Left hand fracture with malunion of undetermined duration. 4. History of fall multiple fractures of the left hip as well as surgery done recently. 5. Gait dysfunction. 6. Possible dementia. 7. Normal pressure hydrocephalus. 8. History of EtOH. 9. COPD. 10. Hypertension. 11. History of vitamin D deficiency. 12. History of DJD. Patient Condition at Discharge: Good Plan - Discharge Summary New Discharge Prescriptions: New Cefuroxime [Ceftin] 500 mg PO BID #10 tab Continue Acetaminophen [Tylenol 8 Hour] 650 mg PO Q4H PRN PRN Reason: Pain Multivitamins, Thera [Multivitamin (formulary)] 1 tab PO DAILY Ferrous Sulfate [Iron (65 MG Elemental)] 325 mg PO BID Docusate [Colace] 100 mg PO BID chlordiazePOXIDE HCL 25 mg PO BID Thiamine [Vitamin B-1] 100 mg PO DAILY Calcium Carbonate 500 mg PO BID Levothyroxine Sodium [Synthroid] 200 mcg PO DAILY Folic Acid 1 mg PO DAILY Enoxaparin [Lovenox] 40 mg SQ DAILY Cholecalciferol [Vitamin D3] 2,000 unit PO DAILY Atenolol 100 mg PO DAILY Discontinued LORazepam [Ativan] 2 mg PO Q4H PRN PRN Reason: Anxiety amLODIPine [Norvasc] 10 mg PO DAILY Enalapril [Vasotec] 5 mg PO DAILY Discharge Medication List Acetaminophen [Tylenol 8 Hour] 650 mg PO Q4H PRN 02/21/17 [History] Atenolol 100 mg PO DAILY 02/21/17 [History] Calcium Carbonate 500 mg PO BID 02/21/17 [History] Cholecalciferol [Vitamin D3] 2,000 unit PO DAILY 02/21/17 [History] Docusate [Colace] 100 mg PO BID 02/21/17 [History] Enoxaparin [Lovenox] 40 mg SQ DAILY 02/21/17 [History] Ferrous Sulfate [Iron (65 MG Elemental)] 325 mg PO BID 02/21/17 [History] Folic Acid 1 mg PO DAILY 02/21/17 [History] Levothyroxine Sodium [Synthroid] 200 mcg PO DAILY 02/21/17 [History] Multivitamins, Thera [Multivitamin (formulary)] 1 tab PO DAILY 02/21/17 [History ] Thiamine [Vitamin B-1] 100 mg PO DAILY 02/21/17 [History] chlordiazePOXIDE HCL 25 mg PO BID 02/21/17 [History] Cefuroxime [Ceftin] 500 mg PO BID #10 tab 02/25/17 [Rx] Follow up Appointment(s)/Referral(s): [facility] health, Psychiatry [Other] - 1 Week Manuel Haile MD [Primary Care Provider] - 3 Days López Villanueva MD [STAFF PHYSICIAN] - 2 Weeks Activity/Diet/Wound Care/Special Instructions: [facility] F/U with [facility], as prev. advised cbc,bmp in 3 days Discharge Disposition: TRANSFER TO SNF/ECF
[2017-02-25] MEDS: MULTIVITAMINS, THERA 1 EACH TAB PO SCH (14:28)
[2017-02-25] MEDS: CHOLECALCIFEROL 1,000 UNIT TAB PO SCH (14:29)
[2017-02-25] MEDS: FOLIC ACID 1 MG TAB PO SCH (14:29)
[2017-02-25] MEDS: THIAMINE 100 MG TAB PO SCH (14:30)
--- NOTE | 2017-02-25 16:40 | CONS ---
CONSULTATION DATE OF SERVICE: 02/25/2017. PURPOSE FOR CONSULTATION: Evaluate for altered mental status. INTERVAL HISTORY: The patient has been doing fair. It is noted that yesterday she was showing signs of acute dystonic reaction with tongue thickening and difficulty verbalizing this, likely related to Zyprexa which had been started on Saturday. Zyprexa was discontinued. She received Benadryl with good results. She has continued to do fairly well overall from a psychiatric standpoint. She has had some ups and downs in her mood overall. Has been showing some improvement with better control of some of the agitation. She was getting into it. It is noted that she had come out of surgery and had been on benzodiazepines which likely extended the acute period of risk for development of DTs. She likely is beyond that. She continues on Librium on a twice a day basis for withdrawal issues. She is not on any other psychotropic medications. She does have an order for p.r.n. Benadryl. If she were to show some recurrence of the speech difficulties with the dystonic reaction. When I saw her today she was appropriate in her manner. She was a little demanding about the idea of when she would be leaving. She was mildly disoriented though generally aware of her circumstances. She was hopeful to be getting discharged soon. RECOMMENDATIONS AND FOLLOW: Patient is stable from a psychiatric standpoint for discharge. At this point, there is not a good indication for any other psychotropic medications beyond her Librium. She may be need to have a clear focus on tapering off of Librium and getting support in dealing with acute withdrawal from benzodiazepines. She is beyond the risk point for development of DTs. She did have an episode of acute dystonia, which has abated. Even with the discontinuation of Zyprexa she may show some vulnerability over the next few days, though gradually less day by day. I would not anticipate any significant problems in that regard. It would be appropriate to have some Benadryl available if she does show some thickening of her tongue and difficulty with speech. MMODL / IJN: [id number] /
--- NOTE | 2017-02-25 21:24 | EEG ---
ELECTROENCEPHALOGRAM REPORT DATE OF EE02/25/2017. REFERRING PHYSICIAN: Dr. Denis. INTERPRETING PHYSICIAN: Dr. López Villanueva. ELECTROENCEPHALOGRAPHIC EXAMINATION REPORT: INDICATION FOR EXAMINATION: This patient is a 71-year-old female being evaluated for altered mental status and confusion. Patient admitted with urinary tract infection and recent fracture. AGE: 71 EEG FINDINGS: A routine 21 channel awake digital EEG recording was accomplished utilizing the 10-20 international system with bipolar and referential montages. The background activity in the most alert resting state consists of a low to medium amplitude, poorly developed and poorly sustained 5-6 Hz activity over the posterior head regions. This posterior rhythm attenuates to eye opening. There is a small amount of low amplitude 18-20 Hz beta activity seen maximally over the anterior head regions. Muscle and movement artifact was observed on a few occasions during the tracing. Hyperventilation was not performed. Photic stimulation at flash frequencies of 2-30 Hz produced a minimal occipital driving response. No epileptiform discharges were seen. IMPRESSION: This EEG gives evidence of a severe widespread diffuse disturbance in cerebral function. The EEG failed to reveal any focal, lateralized, or epileptiform abnormalities. Clinical correlation is recommended. MMODL / IJN: [id number] /
== END 2017-02-25 16:28 | DRG 871 ==
LOC: EC 14:11 → 3OBS 17:42 → OBSVTOIN 02-22 12:19 → 4MS4W 02-22 17:07
PROVIDERS: ADMIT Hospitalist; ATTEND Hospitalist
DX: A41.9 Sepsis, unspecified organism (principal); G93.41 Metabolic encephalopathy; G91.2 (Idiopathic) normal pressure hydrocephalus; F03.90 Unspecified dementia, unspecified severity, without behavioral disturbance, psychotic disturbance, mood disturbance, and anxiety; G24.02 Drug induced acute dystonia; N39.0 Urinary tract infection, site not specified; S52.502A Unspecified fracture of the lower end of left radius, initial encounter for closed fracture; S52.602A Unspecified fracture of lower end of left ulna, initial encounter for closed fracture; E03.9 Hypothyroidism, unspecified; E78.5 Hyperlipidemia, unspecified; F43.22 Adjustment disorder with anxiety; T43.595A Adverse effect of other antipsychotics and neuroleptics, initial encounter; G93.89 Other specified disorders of brain; I10 Essential (primary) hypertension; J44.9 Chronic obstructive pulmonary disease, unspecified; M85.80 Other specified disorders of bone density and structure, unspecified site; R29.6 Repeated falls; W19.XXXA Unspecified fall, initial encounter; Z96.642 Presence of left artificial hip joint; E55.9 Vitamin D deficiency, unspecified; Z79.899 Other long term (current) drug therapy; Z87.891 Personal history of nicotine dependence; Z91.81 History of falling
CPT/HCPCS: 36415; 51701; 70450; 71010; 73502; 80048; 80306; 80320; 81001; 83520; 83735; 84100; 85025; 87040; 87077; 87086; 87186; 95819; 96361; 96372; 96374; 96375; 96376; 99285

== ENCOUNTER 2017-02-26 00:48 | Emergency (ER) | payer MEDICARE, OTHER ==
[2017-02-26] MEDS ORDERED: SODIUM CHLORIDE 0.9% 500 ML IV ONE (01:20)
--- NOTE | 2017-02-26 01:39 | XR ---
EXAMINATION TYPE: XR chest 2V DATE OF EXAM: 02/26/2017 COMPARISON: 02/22/2017 HISTORY: COPD. Altered mental status. TECHNIQUE: Frontal and lateral views of the chest are obtained. FINDINGS: Heart is normal. There are old left-sided healed rib fractures. There is slight increased density over the lateral left midlung field that could relate to peripheral infiltrate. This appears new compared to last exam. Thoracic aorta is atheromatous. There is no pleural effusion. IMPRESSION: There is evidence for some new infiltrate in the lateral left mid lung field compared to last exam. No heart failure.
[2017-02-26 01:58] LABS: Basophils % (A) 1 %; CH 31.2; CHCM 31.8; Eosinophils # (A) 0.4 k/uL (0-0.7); Eosinophils % (A) 5 %; HCT 40.1 % (34.0-46.0); HDW 2.51; HGB 12.5 gm/dL (11.4-16.0); Luc # (Auto) 0.05; Luc % (Auto) 1; Lymphocytes # (A) 1.8 k/uL (1.0-4.8); Lymphocytes % (A) 27 %; MCH 30.8 pg (25.0-35.0); MCHC 31.3 g/dL (31.0-37.0); MCV 98.6 fL (80.0-100.0); Mean Platelet Volume 8.4; Monocytes # (A) 0.5 k/uL (0-1.0); Monocytes % (A) 7 %; Neutrophils # (A) 4.1 k/uL (1.3-7.7); Neutrophils % (A) 60 %; RBC 4.07 m/uL (3.80-5.40); RDW 12.9 % (11.5-15.5); WBC 6.8 k/uL (3.8-10.6)
[2017-02-26 02:08] LABS: ALT 25 U/L (9-52); AST 15 U/L (14-36); Alkaline Phosphatase 100 U/L (38-126); Anion Gap 9 mmol/L; Blood Urea Nitrogen 23 mg/dL (7-17); Calcium 10.1 mg/dL (8.4-10.2); Carbon Dioxide 25 mmol/L (22-30); Chloride 108 mmol/L (98-107); Glucose 96 mg/dL (74-99); Non-African American GFR(MDRD) >60 (>60 ml/min/1.73 sqM); Sodium 142 mmol/L (137-145); Total Bilirubin 0.4 mg/dL (0.2-1.3); Total Protein 6.5 g/dL (6.3-8.2)
[2017-02-26 02:41] LABS: Appearance,Urine Clear (Clear); Bilirubin,Urine Negative (Negative); Glucose,Urine (UA) Negative (Negative); Ketones,Urine Negative (Negative); Leukocyte Esterase,Urine Negative (Negative); Nitrite,Urine Negative (Negative); PH, Urine 6.5 (5.0-8.0); Protein,Urine Negative (Negative); Specific Gravity,Urine 1.012 (1.001-1.035); UA Billing (MACRO vs. MICRO) CHEM; Urobilinogen,Urine <2.0 mg/dL (<2.0)
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
[2017-02-26 04:47] VITALS: BP 158/87; PULSE 86; RESP 20; TEMP 97.9
== END 2017-02-26 05:04 | disposition home or self-care (01) ==
LOC: EC 00:48
DX: R41.82 Altered mental status, unspecified (principal); J44.9 Chronic obstructive pulmonary disease, unspecified; I10 Essential (primary) hypertension; E07.9 Disorder of thyroid, unspecified; Z87.891 Personal history of nicotine dependence; Z79.01 Long term (current) use of anticoagulants; Z79.899 Other long term (current) drug therapy
CPT/HCPCS: 36415; 71020; 80053; 80306; 81003; 85025; 93005; 96360; 99285